=== PATIENT | male | born 1980 | race Caucasian/White ===

== ENCOUNTER → 2019-02-10 | Outpatient (CLI) | payer OTHER ==
[~2019-02-10] MED LIST: 0.9 % SODIUM CHLORIDE 10 ML DISP.SYRIN. ID ONE; CLOT15CR4 TP; CYCL10TA2 PO; FLECTOR1 EACH TP; GADOBUTROL 7.5 MMOL/7.5 ML VIAL INT ART ONE; IOHEXOL 300 MG/ML 50 ML VIAL. INT ART ONE; LIDOCAINE 1% Multi-Dose 20 ML VIAL. ID ONE; LISI10TA2 PO; OMEP20CA10 PO; SUMA50TA3 PO; TOPI100T8 PO; TRAM50TA PO
--- NOTE | 2019-02-10 11:44 | KCIC ---
SHOULDER ARTHROGRAM LEFT History: Left shoulder instability with subluxation, chronic pain Technique: Patient was informed of the risks to include pain, infection, bleeding, nerve or blood vessel injury, allergic reaction. All questions were answered. Patient signed a written consent form for left shoulder injection prior to MRI. Patient was placed in supine position on the fluoroscopy table. The external skin site overlying left shoulder was prepped and draped in the usual sterile fashion. Betadine was utilized for cleansing solution. 1% lidocaine was utilized for local anesthesia to the depth of the bone. 22-gauge spinal needle was advanced under fluoroscopy to depth of the bone. Mixture of 5 cc lidocaine, 5 cc Omnipaque 300, 10 cc saline, 0.1 cc Gadavist were injected during fluoroscopic visualization. Needle was removed. There were no immediate complications. Bandage was applied. Fluoroscopy time 27 seconds, 1 image Impression: 1. Apparently technically successful left shoulder injection, no immediate complication. Electronically signed by: Jett Dumont MD (02/10/2019 11:41 AM) [email or web address]
--- NOTE | 2019-02-10 13:10 | KCIC ---
MRI arthrogram of the left shoulder HISTORY: Left shoulder instability. Chronic pain. TECHNIQUE: Routine 4 plane sequences obtained after intra-articular contrast injection. FINDINGS: The acromioclavicular joint is mildly degenerative. Mild undersurface mass effect. No evidence of a rotator cuff tear. No significant subdeltoid bursal fluid or contrast accumulation. Labrum examination is limited by motion degradation. Mild signal at the anteroinferior labrum on the Aber sequence is probably artifactual. No definite labral tear. Biceps tendon is intact. No acute fracture or aggressive bone destruction. IMPRESSION: 1. Mild acromioclavicular joint degenerative disease. 2. No evidence of rotator cuff tear. 3. Signal within the anteroinferior labrum is likely just due to motion degradation, but a tear is difficult to confidently exclude. Electronically signed by: Geovany Taylor MD (02/10/2019 1:07 PM) [facility]
== END | disposition home or self-care (01) ==
LOC: KCIC 09:23
PROVIDERS: ATTEND Radiology Diagnostic Radiology
DX: M19.012 Primary osteoarthritis, left shoulder (principal); M25.312 Other instability, left shoulder; I10 Essential (primary) hypertension
CPT/HCPCS: 23350; 73040; 73222; A9585; Q9967

== ENCOUNTER → 2019-10-26 | Outpatient (CLI) | payer OTHER ==
[~2019-10-26] MED LIST changes: -0.9 % SODIUM CHLORIDE 10 ML DISP.SYRIN. ID ONE; +DULO60CA6 PO; +GABA600T PO; -GADOBUTROL 7.5 MMOL/7.5 ML VIAL INT ART ONE; -IOHEXOL 300 MG/ML 50 ML VIAL. INT ART ONE; -LIDOCAINE 1% Multi-Dose 20 ML VIAL. ID ONE; +OMEP-229 PO; -OMEP20CA10 PO
--- NOTE | 2019-10-26 08:50 | PAIN ---
DATE OF SERVICE: 10/26/2019 INITIAL CONSULTATION FOR PAIN CLINIC CHIEF COMPLAINT: Low back and left lower extremity pain. 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 The patient reports lately has been more painful in the low back and left leg as having some radicular pain into the left posterior gluteus, posterior thigh, posterior calf, lateral thigh as well and numbness in the lower leg and foot, which is getting worse over the past year or so. The patient did have an epidural injection in June of this year, which helped significantly about 75% by his estimation, but the provider in that region is no longer available. The patient is doing some exercise. He has physical therapy scheduled for later today. He has been doing physical therapy on his own as well, doing some stretching and exercise every day. 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 The patient reports the pain in the low back is constant pain, throbbing and shooting into the left lower extremity with tingling, numbness, radiating pain as well, occasionally on the right side low back, but much worse on the left. The patient did have MRI scan of the lumbar spine showing a broad-based central and left paracentral disk herniation at L4-L5 resulting in left lateral recess stenosis and broad-based central and left paracentral disk herniation with annular fissure at L5-S1 resulting in left lateral recess stenosis, also with some mild mass effect at the L5-S1 nerve root on the left. The patient rates his disability rating from 0-10, 10 being the worst, is a 7 with family home responsibilities, 8 with recreation, 7 with social activity, occupation, self-care and life support activities. He has tried Neurontin as well as Flexeril as earlier this morning, which does decrease the pain, but only by about 10%. The patient reports no loss of motor function, but significant fatigability of the left lower extremity compared to the right with activity and walking, better with sitting or lying down, generally does not awaken him from sleep at night, but can about every 6-7 hours, does not affect his bowel or bladder control, but does affect his ability to walk at times, not using any assistive devices to ambulate. PAST MEDICAL HISTORY: Significant for hypertension, aplastic anemia as a child, gastroesophageal reflux, migraine headaches, arthritis. PREVIOUS SURGERIES: Include left foot surgery x 2 with hardware fusion. CURRENT MEDICATIONS: Include Flexeril, Neurontin, lisinopril, Cymbalta, Excedrin and Topamax. ALLERGIES: The patient has no known allergies. FAMILY HISTORY: Significant for multiple sclerosis in the patient's grandmother. SOCIAL HISTORY: The patient does not drink alcohol; does not smoke; does not use any illegal, illicit or recreational drugs. He is single, is active in , is currently a prisoner in [place], [place]. REVIEW OF SYSTEMS: The patient's review of systems is positive for those items mentioned in history of present illness. All systems reviewed and otherwise negative. It is complete, full and well documented on the patient's chart. PHYSICAL EXAMINATION: VITAL SIGNS: The patient's blood pressure 136/84, pulse 79, respirations 18, temperature 97.9 degrees Fahrenheit, height is 75 inches, weight is 288 pounds. GENERAL: The patient is awake, alert, oriented, appropriate, very pleasant demeanor. HEENT: Shows normocephalic, atraumatic. The patient wears eyeglasses. Extraocular movements are intact and symmetrical. Oral cavity: Mucous membranes moist and pink. Dentition is intact. NECK: Shows anterior throat supple without palpable lymphadenopathy noted. Swallow reflex symmetrical. CHEST: Shows normal on inspection. Breath sounds clear bilaterally. HEART: Shows S1, S2. No murmurs auscultated. ABDOMEN: Soft, nontender, nondistended. No palpable organomegaly is noted. No rebound or guarding demonstrated. BACK: Shows spine grossly in the midline. Normal-appearing thoracic kyphosis, cervical lordotic curvature and lumbar lordotic curvature. Lumbar paraspinous muscle shows symmetrical on inspection, with palpation shows some moderate tenderness diffusely bilaterally going diffusely without significant radiation. The patient has good rotational motion of lumbar spine, both laterally as well as extension and flexion without significant difficulty. No significant tenderness over the spinous processes. Mild tenderness over the left sacroiliac region, but not the right. EXTREMITIES: The patient's lower extremities show deep tendon reflexes at 2+ in the patellar, 1+ tendo-calcaneus tendons. Motor exam is strong with 5/5 dorsiflexion, extension, quadriceps and hamstring flexion, slightly decreased on the left and 4/5 dorsiflexion, extension, quadriceps and hamstring flexion and 5/5 bilaterally. Peripheral pulses are 1+ posterior tibia. No peripheral edema is noted. Lower extremities are warm and dry to touch, equal in color and appearance. Straight leg raise noted to be mildly positive on the left about 45 degrees, decreased with knee flexion, right side is negative. Gaenslen's and Avel's maneuvers are negative bilaterally. SKIN: Shows warm and dry, good turgor. No edema. No sores, rashes or bruising throughout. The patient does have some tattooing at various locations. IMPRESSION: 1. This is a 38-year-old male with approximately 10-year history of pain in low back and now radiating to the left lower extremity more over the past year. 2. MRI scan of lumbar spine as noted. 3. Arthritis. 4. Hypertension. PLAN: Options were discussed with the patient including conservative medical managements, continued physical therapies, interventional techniques. He would like to pursue interventional techniques. We discussed lumbar epidural steroid injections. He has done well with these in the past. He would like to proceed with this. We will wait for preauthorization with his insurance provider. The patient will continue with physical therapy as early as today. Maintain stretching and strength exercises in the meantime. We will have him return once authorization is made for a lumbar epidural steroid injection, translaminar approach L5-S1 level for L5-S1 left-sided radiculopathy. HEAVENLY FLORES MD DR: SONIDO/joana JOB#: [id number] / [id number]
== END | disposition home or self-care (01) ==
LOC: PNCL 07:56 → EEVIPCON 08:00
PROVIDERS: ATTEND Anesthesiology
DX: M54.5 Low back pain (principal); M79.605 Pain in left leg; I10 Essential (primary) hypertension; M19.90 Unspecified osteoarthritis, unspecified site; D61.09 Other constitutional aplastic anemia; K21.9 Gastro-esophageal reflux disease without esophagitis; G43.909 Migraine, unspecified, not intractable, without status migrainosus; Z79.899 Other long term (current) drug therapy
CPT/HCPCS: G0463

== ENCOUNTER → 2020-05-09 | Outpatient (CLI) | payer OTHER ==
[~2020-05-09] MED LIST changes: +CLOT15CR23 TP; -CLOT15CR4 TP; -OMEP-229 PO; +OMEP20CA16 PO
--- NOTE | 2020-05-09 09:06 | PAIN ---
DATE OF SERVICE: 05/09/2020 PROGRESS NOTE FOR PAIN CLINIC DIAGNOSIS: Lumbar radiculopathy with lumbar degenerative disk disease with lumbar herniated disk. HISTORY OF PRESENT ILLNESS: The patient is a 39-year-old male who returns for followup status post previous initial evaluation, which was on 10/26/2019. The patient was in the process of getting preauthorization but is unable to do so with his insurance provider. Reports he has still significant pain in the low back and left lower extremity as it was previously, posterior gluteus, posterior thigh, posterior calf, some on the lateral thigh as well into the calf and the foot, occasionally tingling, burning. The patient reports the pain is a 9 on a scale of 10 at its worst over the past week, 8 on average, 7 at its least and is an 8 today. The patient reports it is sharp and shooting, burning, stabbing, radiating, becoming more constant, worse with walking, standing, changing positions, waking him from sleep at least 3-4 times a night. The patient reports he has tried tramadol. He is also taking gabapentin, which is only mildly decreasing the pain. Tramadol is not decreasing it at all. The patient reports no new motor or sensory deficits, but significant fatigability with left lower extremity as he had previously. The patient reports no other changes. No incontinence. PHYSICAL EXAMINATION: VITAL SIGNS: The patient's blood pressure 142/85, pulse 76, respirations 18, temperature 98.3 degrees Fahrenheit, height 75 inches, weight is 274 pounds. GENERAL: The patient is awake, alert, oriented, appropriate, very pleasant demeanor. HEENT: Head shows normocephalic, atraumatic. The patient wears eyeglasses. Extraocular movements are intact and symmetrical. Oral cavity: Mucous membranes moist and pink. Dentition is intact. NECK: Shows anterior throat supple without palpable lymphadenopathy noted. Swallow reflex symmetrical. CHEST: Shows normal on inspection. Breath sounds are clear bilaterally. HEART: Shows S1, S2 clear. No murmurs auscultated. ABDOMEN: Soft, nontender, nondistended. No palpable organomegaly is noted. No rebound or guarding demonstrated. BACK: Shows spine grossly in the midline. Normal appearing thoracic kyphosis, some minor flattening of lumbar lordotic curvature. Lumbar paraspinous muscle shows symmetrical on inspection, with palpation shows some moderate tenderness diffusely bilaterally going diffusely in the low lumbar distribution, more on the left than the right, but symmetrical without evidence of atrophy, hypertrophy, no trigger points, no asymmetry. The patient has good rotation of motion of the lumbar spine, both laterally, right and left as well as extension greater than 10 degrees, forward flexion 45 degrees without significant increase in pain. EXTREMITIES: Lower extremities show deep tendon reflexes at 2+ in the patellar, 1+ in the tendo-calcaneus tendons. Motor exam is strong with 5/5 dorsiflexion, extension on the right, approximately 4/5 on the left. Peripheral pulses are 1+ in the posterior tibia. No peripheral edema is noted bilaterally. Options were discussed with the patient. The patient's old chart was reviewed as his current medication regimen updated. Current review of systems updated today as well. We will preauthorize the patient for a lumbar epidural steroid injection with clinical radiculopathy at L5-S1 dermatomal distribution on the left in a translaminar approach at the L5-S1 level. The patient will continue to do stretching and strengthening exercises as he has been doing. Also activity as tolerated and walking daily. The patient will continue with anti-inflammatories as well as Neurontin. Return once preauthorization is obtained for lumbar epidural steroid injection at that time. HEAVENLY FLORES MD DR: SONIDO/joana JOB#: [id number] / [id number]
== END | disposition home or self-care (01) ==
LOC: EEVIPCON 01-13 08:00 → PNCL 07:30
PROVIDERS: ATTEND Anesthesiology
DX: M51.16 Intervertebral disc disorders with radiculopathy, lumbar region (principal); I10 Essential (primary) hypertension; K21.9 Gastro-esophageal reflux disease without esophagitis; G43.909 Migraine, unspecified, not intractable, without status migrainosus; Z79.899 Other long term (current) drug therapy
CPT/HCPCS: G0463

== ENCOUNTER → 2020-06-05 | Outpatient (CLI) | payer OTHER ==
[~2020-06-05] MED LIST changes: +CLON0.1T12 PO; +IOHEXOL 180 MG/ML 10 ML VIAL. ONE; +METH-38 PO; +MULT-245 PO; +OMEG100021 PO; +methylPREDNISolone ACETATE 40 MG/ML VIAL. ONE; +methylPREDNISolone ACETATE 80 MG/ML VIAL. ONE
--- NOTE | 2020-06-05 10:19 | PAIN ---
DATE OF SERVICE: 06/05/2020 PROGRESS NOTE FOR PAIN CLINIC DIAGNOSES: 1. Lumbar radiculopathy with lumbar degenerative disk disease. 2. Lumbar herniated disk. HISTORY OF PRESENT ILLNESS: The patient is a 39-year-old male who returns for followup status post initial evaluation and preauthorization for a lumbar epidural steroid injection. The patient has obtained that now and would like to proceed. He has returned. Still significant pain is reported in low back, left lower extremity, posterior gluteus, posterior thigh and posterior calf. The patient reports it is 9 on a scale of 10 at its worst over the past week, 7 on average, 6 at its least and is 7 today. The patient reports it is burning, stabbing, aching and sharp at times in the back, shooting and radiating into the lower extremity on the left only, becoming more constant, worse with walking, standing, changing positions, awakens him from sleep about every 6-7 hours. The patient reports no new motor or sensory deficits. No new bowel or bladder incontinence or any other complaints. PHYSICAL EXAMINATION: VITAL SIGNS: The patient's blood pressure is 122/81, pulse 74, respirations 16, temperature 98.0 degrees Fahrenheit, height 75 inches, weight is 275 pounds. GENERAL: The patient is awake, alert, oriented, appropriate, very pleasant demeanor. HEENT: Shows normocephalic, atraumatic. The patient wears eye glasses. Extraocular movements are intact and symmetrical. Oral cavity: Mucous membranes moist and pink. Dentition is intact. NECK: Shows anterior throat supple without palpable lymphadenopathy noted. Swallow reflex symmetrical. CHEST: Shows normal on inspection. Breath sounds are clear bilaterally. No rales, rhonchi or wheezes auscultated. HEART: Shows S1, S2 clear. No murmurs auscultated. ABDOMEN: Soft, obese, nontender, nondistended. BACK: Shows spine grossly in the midline. Slight exaggeration of thoracic kyphosis. Some minor flattening of lumbar lordotic curvature. Lumbar paraspinous muscle shows symmetrical on inspection, on palpation shows some moderate tenderness diffusely bilaterally, but only diffusely without significant radiation. The patient has good rotational motion of the lumbar spine both laterally as well as extension and flexion without difficulty. EXTREMITIES: Lower extremities show deep tendon reflexes, 2+ in the patellar, 1+ tendo calcaneus tendons. Motor exam is 4 on a scale of 5 on the left and 5/5 on the right with dorsiflexion, extension, quadriceps and hamstring flexion. Peripheral pulses are 1+. No peripheral edema is noted bilaterally. Options were discussed with the patient. The patient's old chart was reviewed as his current medication regimen updated. Current review of systems is updated today as well and we will proceed with a lumbar epidural steroid injection today with fluoroscopic guidance. Risks were again discussed including, but not limited to bleeding, infection, possibility of epidural hematoma, subsequent neurological compromise, dural puncture, headaches, spinal cord and/or nerve damage, side effects of steroid medication and poor results regarding pain control. The patient understands and wished to proceed. The patient will return to clinic in approximately 2 weeks for followup. He was counseled on return appointment, activity level and side effects to be aware of. DIAGNOSES: 1. Lumbar radiculopathy with lumbar degenerative disk disease. 2. Lumbar herniated disk. PROCEDURE: Lumbar epidural steroid injection, translaminar approach at L5-S1 level using C-arm fluoroscopic guidance under sterile prep and drape using local anesthetic. MEDICATION INJECTED: A total of 120 mg Depo-Medrol plus 10 mL of preservative-free normal saline and 2 mL of contrast. CONDITION AT DISCHARGE: Stable. The patient tolerated the procedure well, had no complications. HEAVENLY FLORES MD DR: SONIDO/joana JOB#: [id number] / [id number]
== END | disposition home or self-care (01) ==
LOC: PNCL 07:34 → EEVIPCON 08:00
PROVIDERS: ATTEND Anesthesiology
DX: M51.16 Intervertebral disc disorders with radiculopathy, lumbar region (principal); Z79.899 Other long term (current) drug therapy
CPT/HCPCS: 62323; J1030; J1040; Q9965